=== PATIENT | female | born 1980 ===

== ENCOUNTER 2018-01-24 15:24 | Outpatient (CLI) | payer BC ==
[~2018-01-24 15:24] MED LIST: Iopamidol 370 76% 100 ML VIAL ONE
== END 2018-01-24 15:25 | disposition home or self-care (01) ==
LOC: BICCT 15:24
PROVIDERS: ATTEND Specialist
DX: R51 Headache (principal); R41.3 Other amnesia
CPT/HCPCS: 70470

== ENCOUNTER 2019-04-07 13:36 | Outpatient (CLI) | payer BC ==
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
== END 2019-04-07 13:37 | disposition home or self-care (01) ==
LOC: BICRAD 13:36
PROVIDERS: ATTEND Specialist
DX: M54.12 Radiculopathy, cervical region (principal)
CPT/HCPCS: 72050; 72110

== ENCOUNTER 2019-08-26 13:15 | Outpatient (CLI) | payer OTHER ==
--- NOTE | 2019-08-26 13:56 | RAD ---
EXAM: 3 views of the cervical spine HISTORY: Anterior fusion 8 weeks ago with neck pain COMPARISON: None FINDINGS: AP, lateral, and open mouth odontoid views of the cervical spine shows the patient to be st atus post anterior fusion of C5-C7 with a plate and screws. Disc spacers are seen in the intervening disc spaces. No perihardware lucency is seen. Vertebral bodies demonstrate normal alignme nt without subluxation. No prevertebral soft tissue swelling is seen. IMPRESSION: Postsurgical changes of the cervical spine without evidence of complication.
== END 2019-08-26 13:16 | disposition home or self-care (01) ==
LOC: TBSIIMAG 13:15
PROVIDERS: ATTEND Surgery
DX: M50.20 Other cervical disc displacement, unspecified cervical region (principal); Z98.890 Other specified postprocedural states
CPT/HCPCS: 72040